=== PATIENT | male | born 2000 ===

== ENCOUNTER 2025-06-15 09:15 | Outpatient (CLI) | payer OTHER, SELFPAY ==
--- OUTSIDE RECORDS SUMMARY | 2025-06-15 09:56 | XMS_ITS | Clinical Summary ---
Author Organization [address] Address [address] [place] [id number] Care Team Providers Care Maintenance Electrician Name Role Phone Maik Zamorano Primary Care Provider [phone] Allergies No known active allergies Medications diclofenac DR (VOLTAREN) 75 mg EC tablet Take 1 tablet (75 mg total) by mouth 2 (two) times a day as needed for pain (inflammation). Take with food. 20 tablet 9 Active Additional Information Patient not taking.Reported on 01/15/2022 Active Problems Problem Noted Date Diagnosed Date Closed fracture of proximal end of humerus 07/18 Immunizations Immunization Administration Dates Next Due DTaP, Unspecified 01/25/2004, 0,1999,1999, 1999 HPV, Quadrivalent 04/29/2013 Hep A, Pediatric 04/29/2013 Hep A, Unspecified 04/18/2010 Hep B, Adolescent or Pediatric 1999 Hep B, Unspecified 1999,1999, 999 HiB 07/24/2000,1999,1999 ,1999 IPV 01/25/2004,07/24/2000,1999 ,1999 MMR 01/25/2004,02/04/2000 Meningococcal ACWY, Unspecified 04/18/2010 Tdap 03/14/2021,04/18/2010 Varicella 04/18/2010,02/04/2000 Surgical History Surgery Date Site/Laterality Comments TYMPANOSTOMY TUBE PLACEMENT TONSILECTOMY, ADENOIDECTOMY, BILATERAL MYRINGOTOMY AND TUBES Family History Medical History Relation Name Comments Diabetes Father Relation Name Status Comments Father Alive Mother Alive Social History Tobacco Use Types Packs/Day Years Used Date Smoking Tobacco: Never Smokeless Tobacco: Never Tobacco Cessation:Counseling Given: No Alcohol Use Standard Drinks/Week Comments No 0 (1 standard drink = 0.6 oz pur e alcohol) Personal Safety Answer Date Recorded Getting School Help Needed Not on file 12/18 Sex and Gender Information Value Date Recorded Sex Assigned at Not on file 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 Gender Identity Not on file Sexual Orientation Not on file Obstetrics History Last Filed Vital Signs Vital Sign Reading Time Taken Comments Blood Pressure 134/78 01/15/2022 9:40 AM CDT Pulse 98 01/15/2022 9:40 AM CDT Temperature 36.7 C (98.1 F) 01/15/2022 9:40 AM CDT Respiratory Rate 16 01/15/2022 9:40 AM CDT Oxygen Saturation 98% 01/15/2022 9:40 AM CDT Inhaled Oxygen Concentration - - Weight 154.2 kg (340 lb) 01/15/2022 9:40 AM CDT Height 188 cm (6' 2) 01/15/2022 9:40 AM CDT Body Mass Index 43.65 01/15/2022 9:40 AM CDT Plan of Treatment Not on file Insurance [email or web address] OOS ANTHEM ACCESS BLUE ACCESS OOS Care Teams Maintenance Electrician Relationship Specialty Start Date End Date Maik Zamorano PA [address] [place] [address] PCP - General 10/30/20
[2025-06-15 19:17] LABS: Hematocrit 48.5 % (42.0-52.0); Hemoglobin 15.4 g/dL (14.0-18.0); Mean Corpuscular HGB Conc 31.8 g/dl (32-36); Mean Corpuscular Hemoglobin 27.9 pg (26-34); Mean Corpuscular Volume 88.0 fl (80-100); Platelet Count Result 270 k/mm3 (150-375); Red Blood Count 5.51 M/mm3 (4.6-6.20); White Blood Count 7.8 K/mm3 (4.5-10.0)
[2025-06-15 19:41] LABS: Alanine Aminotransferase 37 U/L (6-50); Albumin Level 4.5 g/dL (3.5-5.1); Alkaline Phosphatase 76 U/L (38-126); Anion Gap 8 mmol/L (4-12); Aspartate Amino Transferase 70 U/L (17-59); Bilirubin,Total 1.3 mg/dL (0.2-1.3); Blood Urea Nitrogen 14 mg/dL (9-20); Calcium 9.5 mg/dL (8.4-10.2); Carbon Dioxide 29 mmol/L (22-30); Chloride 103 mmol/L (98-107); Cholesterol 160 mg/dL (0-200); Estimated Glomerular Filt Rate > 60; Glucose 79 mg/dL (65-110); HDL Direct 30 mg/dL; Potassium 4.4 mmol/L (3.4-5.0); Sodium 140 mmol/L (137-145); Total Protein 8.0 g/dL (6.3-8.2); Triglycerides 100 mg/dL (<150)
[2025-06-15 20:09] LABS: Hemoglobin A1C 5.1 % (<5.7)
[2025-06-15 20:12] LABS: Thyroid Stimulating Hormone 2.130 uIU/mL (0.465-4.680)
[2025-06-15 20:29] LABS: Free T4 Free Thyroxine 1.13 ng/dL (0.78-2.19)
== END 2025-06-15 09:16 | disposition home or self-care (01) ==
LOC: ANHBWCLAB 09:18
PROVIDERS: PCP Nurse Practitioner Adult Health; Visit Provider Nurse Practitioner Adult Health
DX: Z00.00 Encounter for general adult medical examination without abnormal findings (principal)
CPT/HCPCS: 36415; 80053; 80061; 83036; 84439; 84443; 85027